=== PATIENT | male | born 1965 | race Two or more races ===

== ENCOUNTER 2016-12-29 22:02 | Emergency (ER) | payer MEDICAID ==
[2016-12-30] MEDS ORDERED: VENTOLIN HFA18 G2 PO (00:04)
[2016-12-30] MEDS ORDERED: PREDNISONE20 M1 PO (00:04)
[2016-12-30] MEDS ORDERED: TESSALON PERLE100 M1 PO (00:04)
== END 2016-12-30 00:10 ==
LOC: EDMED 22:02
DX: J20.9 Acute bronchitis, unspecified (principal)
CPT/HCPCS: J7512